=== PATIENT | female | born 1985 | race Caucasian/White ===

== ENCOUNTER → 2019-09-04 08:47 | Outpatient (CLI) | payer OTHER, SELFPAY ==
[2019-09-04 11:08] LABS: HIV 1 & 2 Ab/Ag 4th Gen Combo NEGATIVE (NEGATIVE); Hep C Virus Ab w/Reflex Quant NEGATIVE s/c (NEGATIVE)
[2019-09-04 12:10] LABS: Urine N gonorrhoeae NOT DETECTED
[2019-09-04 12:12] LABS: Urine Chlamydia NOT DETECTED
[2019-09-05 10:11] LABS: Varicella IgG Antibody 2683 index (Immune >165)
[2019-09-06 21:07] LABS: AFP, Serum 46.3 ng/mL (.); Calc Gestational Age Ultrasound (.); Inhibin A, Dimeric 250.85 pg/mL (.); Inhibin A, MoM 1.46 (.); Maternal Ethnicity Caucasian (.); Maternal Weight 148 lbs (.); Number of Fetuses No (.); OSBR Risk 1 IN 3311 (.); Results Report (.); Test Results *Screen Negative* (.); hCG, MoM 0.54 (.); hCG, Serum 24141 mIU/mL (.)
== END ==
LOC: LAB 08:50
PROVIDERS: Family Provider Family Medicine; Referring Provider Obstetrics & Gynecology; Visit Provider Obstetrics & Gynecology
DX: Z34.82 Encounter for supervision of other normal pregnancy, second trimester (principal); Z3A.15 15 weeks gestation of pregnancy
CPT/HCPCS: 36415; 82105; 82677; 84702; 86336; 86787; 86803; 87389; 87491; 87591

== ENCOUNTER → 2019-10-02 07:10 | Outpatient (CLI) | payer OTHER, SELFPAY ==
--- NOTE | 2019-10-02 07:13 | DI.US.S_ITS ---
PROCEDURE: US OB >= 14 WEEKS FETUS INDICATIONS: ANATOMY OUTSIDE/PRIOR DATING DATA: Last menstrual period (LMP): Unknown LMP-based estimated date of delivery (WILEY): Unknown First dating scan (date and location): 07/20/2019 [facility] Estimated date of delivery (WILEY) from first dating scan: 02/20/2020 TECHNIQUE: Real-time scanning was performed of the fetus, with image documentation and biometric measurements. Endovaginal scanning: Not performed COMPARISON: [facility], , OB < 14 WEEKS, 07/20/2019, 15:41. FINDINGS: General: A single living intrauterine gestation is present. Presentation: Transverse. Placenta: Placental position is posterior. Marginal placental previa is present. Amniotic fluid index: 12 cm, normal range is 5-24 cm. heart rate: 122 beats per minute. Maternal cervical canal: 4 cm long. Normal lower limit is 2.5 cm. biometrics: Biparietal diameter: 4.2 cm, 18 weeks 6 days Head circumference: 16.5 cm, 19 weeks 2 days Abdominal circumference: 14.1 cm, 19 weeks 3 days Femur length: 3.2 cm, 19 weeks 6 days Estimated gestational age from initial scan: 19 weeks 6 days Composite gestational age from present scan: 19 weeks 3 days Estimated weight and percentile: 300 g, 30th percentile Measurement variability for biometric dating: +/- 7 days from 14 weeks to 15 weeks 6 days gestation, +/- 10 days from 16 weeks to 21 weeks 6 days gestation, +/- 2 weeks from 22 weeks to 27 weeks 6 days gestation, +/- 3 weeks for 28 weeks gestation or later. weight reference: 4500 g or EFW >90/95% is considered macrosomia or large for gestational age. EFW <10% is small for gestational age. EFW 5% or less is considered intra-uterine growth restriction. Anatomic survey: Neuro: Ventricles are non-dilated at less than 10 mm. Cisterna magna is normal at 3-11 mm. Cerebellum is normal in size and morphology. Nuchal skin fold: Normal at less than 6 mm between 14-21 weeks gestational age. Face: Nose and lips, facial profile are normal. Spine: No evidence for spina bifida. Heart: 4-chambered heart is present, with normal ventricular outflow tracts. Diaphragm: Diaphragm is intact. Stomach: Left-sided stomach is present. Kidneys: No hydronephrosis. Normal is less than 5 mm in 2nd trimester, less than 7 mm in 3rd trimester. Cord: 3-vessel cord has orthotopic insertion. Bladder: Normal in size. Extremities: All 4 extremities identified. IMPRESSION: 1. Ballard living intrauterine at 19 weeks 3 days based on today's ultrasound. This is concordant with the prior ultrasound. There is expected interval growth. 2. Marginal placental previa. Normal amniotic fluid. -recommend follow-up OB ultrasound to evaluate the placenta. 3. Normal and complete anatomic survey. Dictated by: Dixon Car M.D. on 10/02/2019 at 9:13 Approved by: Dixon Car M.D. on 10/02/2019 at 9:18
== END ==
PROVIDERS: Family Provider Family Medicine; PCP Obstetrics & Gynecology; Referring Provider Obstetrics & Gynecology; Visit Provider Obstetrics & Gynecology
DX: Z34.82 Encounter for supervision of other normal pregnancy, second trimester (principal); Z3A.19 19 weeks gestation of pregnancy
CPT/HCPCS: 76811

== ENCOUNTER → 2019-11-17 10:33 | Outpatient (CLI) | payer OTHER, SELFPAY ==
[2019-11-17 12:22] LABS: Hematocrit 36.3 % (36-46); Hemoglobin 12.3 g/dL (12.0-16.0)
[2019-11-17 12:44] LABS: GTT (PREG) 1 Hour PP 50gm Dose 160 mg/dL (76-139)
== END ==
PROVIDERS: Family Provider Family Medicine; Referring Provider Obstetrics & Gynecology; Visit Provider Obstetrics & Gynecology
DX: Z34.82 Encounter for supervision of other normal pregnancy, second trimester (principal); Z3A.26 26 weeks gestation of pregnancy
CPT/HCPCS: 36415; 82950; 85014; 85018

== ENCOUNTER → 2020-01-23 08:43 | Outpatient (CLI) | payer OTHER, SELFPAY ==
[2020-01-24 13:09] LABS: Strep Grp B PCR NEG for Grp B Strep
== END ==
PROVIDERS: Visit Provider Obstetrics & Gynecology
DX: Z34.83 Encounter for supervision of other normal pregnancy, third trimester (principal); Z3A.36 36 weeks gestation of pregnancy
CPT/HCPCS: 87653

== ENCOUNTER 2020-02-19 04:47 | Inpatient (IN) | payer OTHER, SELFPAY ==
[2020-02-19 05:56] LABS: COVID19 -Nasal RAPID Negative (Negative)
[2020-02-19 06:00] LABS: Add Manual Diff / Slide Review NO; Basophils Absolute Auto 100 /uL (0-100); Basophils Percent Auto 0.7 % (0-2); Eosinophils Absolute Auto 100 /uL (0-450); Eosinophils Percent Auto 0.6 % (2-4); Hematocrit 37.7 % (36-46); Hemoglobin 12.6 g/dL (12.0-16.0); Lymphocytes Absolute Auto 2400 /uL (1100-4500); Lymphocytes Percent Auto 14.9 % (25-40); Mean Corpuscular HGB Conc 33.4 % (30-36); Mean Corpuscular Hemoglobin 28.6 PG (26-34); Mean Corpuscular Volume 85.6 fL (80-100); Monocytes Absolute Auto 1000 /uL (0-900); Monocytes Percent Auto 6.5 % (3-14); Neutrophils Absolute Auto 12300 /uL (1500-7000); Neutrophils Percent Auto 77.3 % (50-75); Platelet Count 321 X10^3/uL (150-400); Red Blood Cell Count 4.41 X10^6/uL (4.0-5.2); Red Cell Distribution Width 13.6 % (11.6-14.8); White Blood Cell Count 15.9 X10^3/uL (4.5-11.0)
[2020-02-19 06:22] VITALS: BP 113/77
[2020-02-19] MEDS: LACTATED RINGERS 1,000 ML 100 ML IV ×2 (10:15→14:11)
[2020-02-19] MEDS: FENT 2MCG/ML BUPIV 0.125% EPI 200 MCG/100 ML PLAST..BAG 3 MCG EPIDURAL (12:14)
[2020-02-19] MEDS: IBUPROFEN 600 MG TABLET PO (18:36)
--- NOTE | 2020-02-19 19:56 | PM.OBHP.1 ---
OB HPI Date/Time Date of admission: 02/19/20 Date Patient Seen: 02/19/20 Time Patient Seen: 07:30 History of Present Condition Chief complaint: Labor & Delivery : 3 Para: 2 Estimated Date of Delivery: 02/20/20 Estimated Gestational Age (weeks): 39+ 6 Narrative: Steve Cagle is a 35 year old female 3 para 2 at 39 and 6 7th weeks gestation who presented in active labor. She received an epidural for pain management. History of Present care: good care, number of visits (12) and pounds weight gain (20) Dating criteria: LMP confirmed by 1st trimester US Ultrasounds: normal 1st trimester US and normal mid trimester US Obstetrical complications: gestational diabetes (Diet controlled) Medical complications: none Preadmission Labs Blood type: O (+) positive -: Antibody screen: negative, GBS status: negative, HBsAG: negative, HIV: negative and RPR/VDLR: negative -: Chlamydia screen: not detected and Gonorrhea screen: not detected -: Rubella: immune and Varicella: immune HCT: 36.3 HCAB: negative Quad screen: Normal Urine: negative 1 hr GTT: 160 Prior (ies) History: 2 Evaluation Evaluation Baseline heart rate: 130 Variability: Moderate (11-25) monitor accelerations: Present monitor decelerations: Absent Contraction Frequency (minutes): 4 Uterine Contraction Intensity: Strong/Firm Status: Category l Cervical dilation (cm): 4 Cervical effacement (%): 100 station: -2 Laboratory results: Laboratory Tests 02/19/20 02/19/20 02/19/20 05:20 05:20 05:20 WBC 15.9 H RBC 4.41 Hgb 12.6 Hct 37.7 MCV 85.6 MCH 28.6 MCHC 33.4 RDW 13.6 Plt Count 321 Neut % (Auto) 77.3 H Lymph % (Auto) 14.9 L Gibson % (Auto) 6.5 Eos % (Auto) 0.6 L Baso % (Auto) 0.7 Neut # (Auto) 07457 H Lymph # (Auto) 2400 Gibson # (Auto) 1000 H Eos # (Auto) 100 Baso # (Auto) 100 SARS-CoV-2 (PCR) Negative Blood Type O Positive Antibody Screen Negative [facility] Medical History (Updated 01/08/20 @ 09:25 by Coni Knowles MD) Abnormal Pap smear of cervix AMA (advanced maternal age) multigravida 35+ Breast lump (~05/2019) (spontaneous vaginal delivery) (~09/07/16) (spontaneous vaginal delivery) (~06/22/08) Social History marital status: unmarried,living together number of children: 2 household members: significant other and children occupational status: employed (works in [place] [employer]) sexual history: monogamous relationship x 7 years Smoking Status: Never smoker second hand exposure: No alcohol intake: former (Stopped upon diagnosis) substance use type: does not use Meds Home Medications and Allergies Home Medications Medication Instructions Recorded Confirmed Type prenat.vits,rashad,zxd-jgud-xhcxj 1 tab PO DAILY 09/03/19 02/19/20 History Allergies Allergy/AdvReac Type Severity Reaction Status Date / Time No Known Drug Allergies Allergy Verified 02/19/20 16:43 Exam Vital Signs (past 8 hours): Generally: Patient comfortable with epidural, no acute distress Lungs: Clear to auscultation bilaterally Cardiovascular: Regular rate and rhythm Fundal height: 38 cm Estimated weight: 6 and half to 7 lb Extremities: No edema, 1+ DTRs Objective Labs Result Diagrams: 02/19/20 05:20 Labs: Laboratory Results - last 24 hr 02/19/20 02/19/20 02/19/20 05:20 05:20 05:20 WBC 15.9 H RBC 4.41 Hgb 12.6 Hct 37.7 MCV 85.6 MCH 28.6 MCHC 33.4 RDW 13.6 Plt Count 321 Neut % (Auto) 77.3 H Lymph % (Auto) 14.9 L Gibson % (Auto) 6.5 Eos % (Auto) 0.6 L Baso % (Auto) 0.7 Neut # (Auto) 09053 H Lymph # (Auto) 2400 Gibson # (Auto) 1000 H Eos # (Auto) 100 Baso # (Auto) 100 SARS-CoV-2 (PCR) Negative Blood Type O Positive Antibody Screen Negative Assessment and Plan Assessment and Plan Assessment and Plan narrative: Assessment: 35-year-old 3 para 2 at 39 and 6 7th weeks gestation in active labor Has received an epidural for pain management Plan: Expected management to spontaneous vaginal delivery Artificial rupture of membranes when able Time Spent with Patient Total time spent with greater than 50% in coordination of care (as documented) at patient's floor/unit and/or counseling patient:: 15-24 minutes
[2020-02-19] MEDS: OXYCODONE/ACETAMINOPHEN 5/325 TABLET 1 TAB PO (19:59)
--- NOTE | 2020-02-19 20:05 | P.PCNOB_ITS ---
Events: Labor Augmentation Labor & Delivery Delivery date: 02/19/20 Cervical ripening method: none Induction method: none Delivery augmentation: rupture of membranes and pitocin Delivery monitor: external FHT and external uterine Route of delivery: Episiotomy description: None L&D Laceration Description: None Estimated blood loss (mL): 100 Complications: None [place] Baby 1: Infant gender: Female Presentation: vertex Position: Right Occiput Anterior Placenta delivery description: Spontaneous Cord Vessel Description: 3 Vessels score (1 min): 9 score (5 min): 9 Narrative: Patient complete and pushed x1. At 2:35 p.m., a live female infant delivered spontaneously over an intact perineum, in the SHANNAN presentation. No nuchal cord. The remainder of the body delivered without difficulty and infant was placed on mom's abdomen. After the cord stopped pulsing, the cord was double clamped and cut. Cord bloods were obtained. The placenta delivered intact with a three-vessel cord at 2:43 p.m.. Fundus was massaged to firm. Pitocin was given in the IV fluids after the cord was clamped and cut. No lacerations. Estimated blood loss 100 cc. . Epidural analgesia. Apgars 9 at 1 minute and 9 at 5 minutes. Weight 6 lb 0.7 oz. Mom and stable to recovery. Plan for aftercare: To routine care
[2020-02-20] VITALS (14 sets, daily range): BP systolic 110–130; BP diastolic 62–82; PULSE 56–81; RESP 12–20; TEMP 36.6–37.2; O2SAT 97–99
--- NOTE | 2020-02-20 | PATH_ITS ---
[facility] Accession Number: [id number] . 01 Material submitted: . fallopian tube - SEGMENTS OF BILATERAL FALLOPIAN TUBES . 01 Clinical history: . EVALUATION OF LABOR . 02 Diagnosis: Segments of Bilateral Fallopian Tubes, Bilateral Tubal Ligation: Complete cross-sections of segments of fallopian tube x2. Negative for atypia or malignancy. V 02/25/2020 1039 Local . 02 Electronically signed: . Reyna Fitzgerald MD, Pathologist NPI- [id number] . 01 Gross description: . Received one formalin-filled container, labeled with the patient's name and labeled segments of fallopian tubes. The specimen consists of two blanco-montes de oca, nonfimbriated, cylindrical-shaped portions of tissue. The first measures 1.0 x 0.6 x 0.6 cm; trisected and totally submitted in cassette A1. The second piece measures 1.0 x 0.7 x 0.5 cm; trisected and totally submitted in cassette A2. ([id number]) /[facility] 02/22/2020 0308 Local . 02 Pathologist provided ICD-10: Z30.2 . 02 CPT . 136282 Performed at: 01 [facility] [address], [place], [place] [id number] MD Ash Manrique MD Phone: [phone] Performed at: 02 [facility] [address] [place], [place] [id number] MD Dennise Salazar MD Phone: [phone]
[2020-02-20] MEDS: IBUPROFEN 600 MG TABLET PO (05:39)
[2020-02-20 06:34] LABS: Hematocrit 34.1 % (36-46); Hemoglobin 11.4 g/dL (12.0-16.0)
--- NOTE | 2020-02-20 07:39 | PM.OBPRVD ---
Labor & Delivery Estimated blood loss (mL): 100 Baby 1: Infant gender: Female Presentation: vertex Position: Right Occiput Anterior Placenta delivery description: Spontaneous Cord Vessel Description: 3 Vessels score (1 min): 9 score (5 min): 9
[2020-02-20] MEDS: LACTATED RINGERS 1,000 ML 42 ML IV (10:45)
--- NOTE | 2020-02-20 11:20 | PM.PREOP ---
Pre-operative Note COVID-19 COVID-19 status: Negative Result date/Date tested (Pos, Neg/Pending): 02/19/20 Interval Note History & Physical reviewed/Exam performed by Physician: Yes Changes to H&P: No H&P completed within 30 days and has changed as indicated here:: 02/19/20
--- NOTE | 2020-02-20 12:02 | SUR.OPER ---
Supine on padded OR bed, head on pillow, arms secured on padded arm boards at <90 degrees abduction, legs uncrossed, safety belt at thigh, tape over blanket over lower legs.
[2020-02-20] MEDS: BUPIVACAINE 0.5% W/ EPI (PF) 30 ML VIAL INJ (12:08)
[2020-02-20] MEDS: OXYCODONE IR 5 MG TABLET PO (13:06)
[2020-02-20] MEDS: OXYCODONE/ACETAMINOPHEN 5/325 TABLET 1 TAB PO (13:50)
--- NOTE | 2020-02-20 16:47 | PM.OBPN.1 ---
Subjective - OB Subjective Patient comments: no complaints and pain well controlled [place] baby status: doing well and nursing well feeding status: exclusively breast feeding Date Patient Seen: 02/20/20 Time Patient Seen: 07:45 Interval history: Patient is a 35-year-old 3 para 3 day # 1 status post spontaneous vaginal delivery. She is scheduled for a tubal ligation later today. Exam Vital Signs (past 8 hours): - Generally: Patient is sitting up in bed, nursing , no acute distress Fundus: Firm at U -1 Extremities: Negative Homans, no edema 02/20/20 12:26 02/20/20 12:31 02/20/20 12:36 Temperature 98.2 F Pulse Rate 56 L 56 L 57 L Respiratory Rate 14 14 14 Blood Pressure 118/75 130/76 128/62 Pulse Oximetry 97 98 98 02/20/20 12:41 02/20/20 12:46 02/20/20 12:51 Temperature Pulse Rate 58 L 62 59 L Respiratory Rate 14 12 14 Blood Pressure 123/80 119/76 119/77 Pulse Oximetry 99 98 97 02/20/20 12:56 02/20/20 13:01 02/20/20 13:06 Temperature 97.9 F Pulse Rate 70 62 60 Respiratory Rate 14 14 12 Blood Pressure 110/75 124/81 129/82 Pulse Oximetry 99 99 98 02/20/20 13:11 02/20/20 13:16 02/20/20 13:21 Temperature Pulse Rate 56 L 66 70 Respiratory Rate 14 12 12 Blood Pressure 121/80 115/77 119/76 Pulse Oximetry 98 97 97 02/20/20 13:28 Temperature 98.1 F Pulse Rate 75 Respiratory Rate 12 Blood Pressure 130/81 Pulse Oximetry 98 Oxygen Delivery Method Room Air Objective Labs Result Diagrams: 02/20/20 06:08 Labs: Laboratory Results - last 24 hr 02/20/20 06:08 Hgb 11.4 L Hct 34.1 L Assessment & Plan Plan day: 1 plan OB: routine care Comments: tubal ligation later today Possible discharge this evening Time Spent With Patient Time: Total time spent is greater than 50% in coordination of care (as documented) at patient's floor/unit and/or counseling patient: Time with patient: less than 15 minutes
--- NOTE | 2020-02-20 17:07 | P.OP_ITS ---
Operative Date/Time/Diagnoses Date of procedure: 02/20/20 Time of procedure: 13:00 Pre-op diagnosis: Multiparity Desires permanent sterilization Post-op diagnosis: same Procedure & Clinicians Procedure: Procedures Operation Date: 02/20/20 10:45 Actual Procedures Side Surgeon p Post Bilateral Tubal Ligation Coni Knowles MD Indications: Multiparity Desires permanent sterilization Surgeon: Coni Knowles Anesthesia Type: General and Local Operative Notes Findings: Uterus at 2 below the umbilicus Normal tubes and ovaries Closure Type: primary Specimen(s): other (Segments of right and left tube to pathology) Estimated blood loss (mL): 5 Blood products transfused: none Procedure in detail: After informed consent was obtained, the patient was taken to the operating room where she was placed in the dorsal supine position. After adequate general endotracheal anesthesia was achieved, she was prepped and draped in the usual sterile fashion. Allis clamps were placed 2 cm apart just below the umbilical fold. 8 cc of 0.5% Marcaine with epinephrine were injected below the skin. A 1.5 cm incision was made. This was carried through to the underlying layer of fascia. The fascia was nicked in the midline and the incis ion extended bilaterally with the Guillen scissors. The peritoneum was grasped between 2 hemostats, and entered sharply with the Metzenbaum scissors. The left tube was identified and carried out to the fimbriated end with a Faisal. 2[address] to the distal end a 2 cm segment of tube was ligated with 0 plain chromic x2. A 1 cm segment of tube was excised. The ends of the tube were cauterized for hemostasis. This was repeated on the patient's right side. Hemostasis was achieved. The tubes were returned to the abdomen. The fascia was closed with 0 Vicryl in a running suture. The incision was irrigated with warm normal saline. Two simple interrupted sutures with 3-0 Vicryl were placed in the subcutaneous layer. The skin was closed with 4 0 Biosyn in a subcuticular fashion. Steri-Strips, 2 x 2, and op site were placed. Sponge, lap, and instrument counts were correct x2. The patient tolerated the procedure well, was taken to PACU in stable condition. Complications: none Post-operative Condition: stable Disposition: PACU Plan for aftercare: To the center after recovery
== END 2020-02-20 18:25 | disposition home or self-care (01) | DRG 798 ==
PROVIDERS: Obstetrics & Gynecology; Admitting Provider Family Medicine; Referring Provider Family Medicine; Visit Provider Family Medicine
PROC: 0UB70ZZ Excision of Bilateral Fallopian Tubes, Open Approach (ICD-10-PCS; CPT 58605; principal; 2020-02-20 10:45)
DX: O24.420 Gestational diabetes mellitus in childbirth, diet controlled (principal); Z37.0 Single live birth; Z3A.39 39 weeks gestation of pregnancy; Z30.2 Encounter for sterilization; Z20.822 Contact with and (suspected) exposure to COVID-19
CPT/HCPCS: 01967; 36415; 58605; 59050; 59400; 85014; 85018; 85025; 86850; 86900; 86901; 87635; C9803; G0379; J1100; J1885; J2405; J2704; J3010

== ENCOUNTER → 2020-06-17 08:45 | Outpatient (CLI) | payer OTHER, SELFPAY ==
--- NOTE | 2020-06-17 08:46 | DI.US.S_ITS ---
LIMITED ULTRASOUND OF LEFT BREAST: 06/17/2020 CLINICAL: Palpable left breast lump x 2-3 years. Comparison is made to exam dated: 06/17/2020 mammogram - [facility]. Real-time ultrasound of the left breast 1-2 o'clock and 11 o'clock regions was performed on the area of interest. No discrete cystic or solid mass lesion identified in the area of palpable abnormality at the 1:00 position or in the area of pain at the 11:00 position. IMPRESSION: NEGATIVE There is no sonographic evidence of malignancy. There are no abnormalities seen in the left breast to correspond with the palpable abnormality at 1 o'clock, however, clinical followup is recommended. There is no abnormality seen in the left breast to correspond with the pain at 11 o'clock, however, clinical followup is recommended. A right breast ultrasound is recommended for further evaluation of the finding seen on mammography. A screening mammogram is recommended in 5 years at age 40. This exam was interpreted at Station ID: [id number]. Electronically Signed By: Ash martínez/:06/17/2020 10:42:25 letter sent: Clinical Evaluation Ultrasound BI-RADS: 1 Negative
--- NOTE | 2020-06-17 08:46 | DI.MG.S_ITS ---
BILATERAL DIGITAL DIAGNOSTIC MAMMOGRAM 3D/2D: 06/17/2020 CLINICAL: Left breast mass. No prior exams were available for comparison. The tissue of both breasts is heterogeneously dense. This may lower the sensitivity of mammography. There is an irregular equal density asymmetry with an indistinct margin in the right breast at 3 o'clock posterior depth. There is an irregular equal density focal asymmetry with an indistinct margin in the left breast at 1 o'clock posterior depth. This correlates as palpated. No other significant masses or calcifications are seen in either breast. IMPRESSION: INCOMPLETE: NEEDS ADDITIONAL IMAGING EVALUATION The irregular equal density asymmetry in the right breast at 3 o'clock posterior depth is indeterminate. An ultrasound is recommended. The irregular equal density focal asymmetry in the left breast at 1 o'clock posterior depth is indeterminate. An ultrasound is recommended. There are no abnormalities seen in the left breast to correspond with the pain at 11 and 12 o'clock, however, ultrasound is recommended. Scheduled ultrasound of the left breast will be performed immediately following the current exam. A right breast ultrasound was unable to be scheduled for the current visit. A followup visit will be scheduled. This exam was interpreted at Station ID: [id number]. NOTE: For mammograms, a report in lay terms will be sent to the patient. Approximately 15% of breast malignancies will not be visualized mammographically. In the management of a palpable breast mass, a negative mammogram must not discourage biopsy of a clinically suspicious lesion. Electronically Signed By: Ash Carr M.D. [email or web address]/:06/17/2020 10:10:36 letter sent: Need Ultrasound ACR BI-RADS Category 0: Incomplete [id number]
== END ==
PROVIDERS: Referring Provider Obstetrics & Gynecology; Visit Provider Obstetrics & Gynecology
DX: R92.8 Other abnormal and inconclusive findings on diagnostic imaging of breast (principal); N63.23 Unspecified lump in the left breast, lower outer quadrant; N64.89 Other specified disorders of breast
CPT/HCPCS: 76642; 77066; G0279